=== PATIENT | male | born 1980 | race African-American/Black ===

== ENCOUNTER 2020-10-15 19:54 | Emergency (ER) | payer OTHER ==
[~2020-10-15] VITALS: Ht 188 cm; Wt 112.0 kg
[2020-10-15 20:38] LABS: ABSOLUTE NEUTROPHILS 1.5 thou/uL (1.4-8.2); BASOPHILS 0.5 % (0.0-2.0); EOSINOPHILS 1.8 % (0.0-3.0); HEMATOCRIT 38.4 % (42.0-52.0); HEMOGLOBIN 13.5 gm/dL (14.0-18.0); LYMPHOCYTES 45.7 % (24.0-44.0); MCH 29.2 pg (26.0-34.0); MCHC 35.3 g/dL (28.0-37.0); MCV 82.7 fL (80.0-100.0); MONOCYTES 13.4 % (1.0-8.0); PLATELET COUNT 293 thou/uL (150-400); POLYS 38.6 % (36.0-66.0); RBC 4.64 mil/uL (4.50-6.00); RDW 13.4 % (10.5-14.5); WBC 3.8 thou/uL (4.0-11.0)
[2020-10-15 20:49] LABS: CALCIUM 8.5 mg/dL (8.5-10.1); CREATININE 1.1 mg/dL (0.7-1.3); POTASSIUM 3.8 mmol/L (3.5-5.1)
[2020-10-15 20:55] LABS: ALBUMIN 3.7 g/dL (3.4-5.0); TOTAL BILIRUBIN 0.9 mg/dL (0.2-1.0); TOTAL PROTEIN 7.7 g/dL (6.4-8.2)
[2020-10-15 21:41] LABS: URINE BILIRUBIN NEGATIVE (Negative); URINE BLOOD TRACE (Negative); URINE CLARITY CLEAR; URINE COLOR YELLOW; URINE GLUCOSE-RANDOM* NEGATIVE (Negative); URINE KETONES NEGATIVE (Negative); URINE LEUKOCYTES-REFLEX TRACE (Negative); URINE NITRITE-REFLEX NEGATIVE (Negative); URINE PROTEIN (DIPSTICK) NEGATIVE (Negative); URINE SPECIFIC GRAVITY 1.025 (1.005-1.035)
[2020-10-15 23:14] VITALS: BP 139/89
--- NOTE | 2020-10-17 09:23 | EKG ---
[place] [address] [address] [facility] [place] [address] ELECTROCARDIOGRAM REPORT Name: TYLER PERALTA Room #: [facility] Dayan#: [id number] Admission: 10/15/20 Attend Phys: Discharge: 10/15/20 Date of : 80 Report #: [id number] [facility] ED Test Date: 2020-10-15 Test Time: 20:06:36 Pat Name: TYLER PERALTA Department: Room: Gender: Promotions Manager: : 1980 Requested By: Rafia Bronson Order Number: [id number] MD: Milton Lane Measurements Intervals [place] Rate: 86 P: 59 RI: 151 QRS: 2 QRSD: 90 T: 11 QT: 358 QTc: 429 Interpretive Statements Sinus rhythm Abnormal R-wave progression, early transition No previous ECG available for comparison Electronically Signed On 10-17-2020 9:23:[address] [email or web address] <ELECTRONICALLY SIGNED> By: Milton Lane MD, [facility] 10/17/20 [address] MD, FACC /EPI
== END 2020-10-15 23:17 | disposition home or self-care (01) ==
LOC: ER 19:54
PROVIDERS: Nurse Practitioner Family
DX: U07.1 COVID-19 (principal); R07.89 Other chest pain; R05 Cough